=== PATIENT | female | born 1985 | race Caucasian/White ===

== ENCOUNTER 2016-10-08 18:15 | Emergency (ER) | payer MEDICAID ==
--- NOTE | 2016-10-08 19:18 | PN ---
Progress Note - Progress Note Note: Patient complaining of pain to the right labia starting today. She denies any discharge. 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
[2016-10-08] MEDS ORDERED: Acetaminophen TAB* 325 MG PO ONE (20:17)
[2016-10-08] MEDS ORDERED: Sulfamethox/Trimethoprim DS 800/160* TAB PO ONE (20:20)
[2016-10-08 21:03] LABS: Hematocrit 33 % (35-47); Hemoglobin 10.7 g/dl (12.0-16.0); Mean Corpuscular HGB Conc 33 g/dl (31-36); Mean Corpuscular Hemoglobin 31 pg (27-31); Mean Corpuscular Volume 93 fL (80-97); Mean Platelet Volume 11 um3 (7.4-10.4); Red Blood Count 3.53 10^6/ul (4.0-5.4); Red Cell Distribution Width 16 % (10.5-15); White Blood Count 5.7 10^3/ul (3.5-10.8)
[2016-10-08 21:14] LABS: BUN/Creatinine Ratio 15.1 (8-20); Calcium 8.9 mg/dL (8.6-10.3); EGFR African American 89.9 (>60); EGFR Non-African American 69.9 (>60); Potassium 4.2 mmol/L (3.5-5.0)
[2016-10-08 22:32] VITALS: BP 148/98
--- NOTE | 2016-10-08 23:22 | ED ---
Marty Oquendo Michael, scribed for Russell Benavidez MD on 10/08/16 at 1922 . Lower Extremity - HPI Summary HPI Summary: 31 y/o female was BIBA to the ED presenting with bilateral LE swelling and erythema that started 2 weeks ago and has been worsening for the past 3 days. The pt reports a hx of lymphedema in her bilateral LE, and currently her LE are swollen and have erythema. She states her bilateral LE are hot and look "waxy". She also c/o a fever with a temperature of 100.5, vaginal swelling, and lesions that burn. The pt denies vaginal discharge/bleeding, dysuria, and hematuria. The PMhx is significant for eczema and past heroine IV use. The pt was referred to the ED from [facility] where she lives. - History of Current Complaint Chief Complaint: EDExtremityLower Stated Complaint: BILATERAL LEG SWELLING Time Seen by Provider: 10/08/16 18:22 Hx Obtained From: Patient, EMS, Medical Records Mechanism Of Injury: Unknown Onset of Pain: Immediate Onset/Duration: Still Present Severity Initially: Moderate Severity Currently: Moderate Pain Intensity: 10 Pain Scale Used: 0-10 Numeric Timing: Constant Location: Is Discrete @ - bilateral LE Associated Signs And Symptoms: Positive: Swelling, Redness, Fever, Other - vaginal swelling. lesions. - Allergies/Home Medications Allergies/Adverse Reactions: Allergies Allergy/AdvReac Type Severity Reaction Status Date / Time Azithromycin [From Zithromax] Allergy Unknown Verified 10/08/16 18:25 Reaction Details Cefaclor [From Ceclor] Allergy Unknown Verified 10/08/16 18:25 Reaction Details Cyclobenzaprine Allergy Unknown Verified 10/08/16 18:24 [From Flexeril] Reaction Details Fluoxetine [From Prozac] Allergy Unknown Verified 10/08/16 18:25 Reaction Details PMH/Surg Hx/FS Hx/Imm Hx Previously Healthy: No - lymphedema. eczema. Infectious Disease History: No Infectious Disease History: Denies: Traveled Outside the [place] in Last 30 Days - Family History Known Family History: Positive: None - pt denies a significant FHx - Social History Lives: Alone - at [facility] Alcohol Use: None Hx Substance Use: Yes - heroine IV Substance Use Type: Reports: Heroin Review of Systems Positive: Fever. Negative: Chills Negative: Erythema Negative: Sore Throat Negative: Chest Pain Negative: Shortness Of Breath, Cough Negative: Abdominal Pain, Vomiting, Nausea Positive: other - vaginal swelling. Negative: dysuria, hematuria Positive: Edema - bilateral LE . Negative: Myalgia Positive: Other - lesion Neurological: Negative - dizziness All Other Systems Reviewed And Are Negative: Yes Physical Exam - Summary Physical Exam Summary: Constitutional: Well-developed, Well-nourished, Alert. (-) Distressed Skin: erythema bilateral lower calfs, excoriated lesion on scalp and right side of anterior chest. HENT: Normocephalic; Atraumatic Eyes: Conjunctiva normal Neck: Musculoskeletal ROM normal neck. (-) JVD, (-) Stridor, (-) Tracheal deviation Cardio: Rhythm regular, rate normal, Heart sounds normal; Intact distal pulses; The pedal pulses are 2+ and symmetric. Radial pulses are 2+ and symmetric. (-) Murmur Pulmonary/Chest wall: Effort normal. (-) Respiratory distress, (-) Wheezes, (-) Rales Abd: Soft, (-) Tenderness, (-) Distension, (-) Guarding, (-) Rebound Musculoskeletal: bilateral lymphedema Le. Lymph: (-) Cervical adenopathy Neuro: Alert, Oriented x3 Psych: Mood and affect Normal Triage Information Reviewed: Yes Vital Signs On Initial Exam: Initial Vitals Temp Pulse Resp BP Pulse Ox 98.4 F 108 16 127/87 96 10/08/16 18:22 10/08/16 18:22 10/08/16 18:22 10/08/16 18:22 10/08/16 18:22 Vital Signs Reviewed: Yes Diagnostics - Vital Signs Vital Signs Temp Pulse Resp BP Pulse Ox 10/08/16 18:22 98.4 F 108 16 127/87 96 - Laboratory Lab Results: Lab Results 10/08/16 10/08/16 Range/Units 18:48 18:48 WBC 5.7 (3.5-10.8) 10^3/ul RBC 3.53 L (4.0-5.4) 10^6/ul Hgb 10.7 L (12.0-16.0) g/dl Hct 33 L (35-47) % MCV 93 (80-97) fL MCH 31 (27-31) pg MCHC 33 (31-36) g/dl RDW 16 H (10.5-15) % Plt Count 156 (150-450) 10^3/ul MPV 11 H (7.4-10.4) um3 Sodium 135 (133-145) mmol/L Potassium 4.2 (3.5-5.0) mmol/L Chloride 102 (101-111) mmol/L Carbon Dioxide 30 (22-32) mmol/L Anion Gap 3 (2-11) mmol/L BUN 14 (6-24) mg/dL Creatinine 0.93 (0.51-0.95) mg/dL Est GFR ( Amer) 89.9 (>60) Est GFR (Non-Af Amer) 69.9 (>60) BUN/Creatinine Ratio 15.1 (8-20) Glucose 88 (70-100) mg/dL Calcium 8.9 (8.6-10.3) mg/dL Result Diagrams: 10/08/16 18:48 10/08/16 18:48 Lab Statement: Any lab studies that have been ordered have been reviewed, and results considered in the medical decision making process. Lower Extremity Course/Dx - Course Course Of Treatment: 31 y/o female comes to the ED presenting with worsening lymphedema of the bilateral LE and erythema of the lower calfs. She also presents lesions on her scalp and anterior right chest. - Diagnoses Provider Diagnoses: Bilateral lower leg cellulitis, Cellulitis of labia majora, Cellulitis of scalp Discharge - Discharge Plan Condition: Good Disposition: HOME Prescriptions: Sulfamethox/Trimethoprim DS* [Bactrim DS 800/160 TAB*] 1 tab PO BID #20 tab Patient Education Materials: Cellulitis (ED) Referrals: Becca Garcia, [Primary Care Provider] - 2 Days Additional Instructions: Return to the emergency department for changing or worsening symptoms The documentation as recorded by the Marty todd Michael accurately reflects the service I personally performed and the decisions made by , Russell Benavidez MD.
== END 2016-10-08 22:32 | disposition home or self-care (01) ==
LOC: ED 18:15
DX: L03.116 Cellulitis of left lower limb (principal); L03.115 Cellulitis of right lower limb; L03.811 Cellulitis of head [any part, except face]; N76.2 Acute vulvitis; R50.9 Fever, unspecified; R60.9 Edema, unspecified
CPT/HCPCS: 36415; 80048; 85027; 87480; 87491; 87510; 87591; 87661; 99283; A9270-GY

== ENCOUNTER 2016-10-24 20:18 | Emergency (ER) | payer MEDICAID ==
[2016-10-24 21:21] VITALS: BP 124/81
[2016-10-24] MEDS ORDERED: predniSONE TAB* 20 MG PO ONE (23:33)
[2016-10-24] MEDS ORDERED: Amoxicillin/Clavulanate TAB* 875 MG PO ONE (23:33)
[2016-10-24] MEDS ORDERED: Fluconazole 100 MG TAB* TAB PO ONE (23:33)
--- NOTE | 2016-10-25 23:07 | ED ---
Dalila Oquendo Anna, scribed for Russell Benavidez MD on 10/24/16 at 2333 . Skin Complaint - HPI Summary HPI Summary: Patient is a 31 y/o female coming to [facility] presenting with gradual onset of a worsening rash that began two weeks ago. She has purulent sores on her scalp, chest, and ankles. She completed a round of antibiotics last week. She was prescribed Diflucan, which did not alleviate the symptoms. She has some pain. She takes Lasix 80 mg twice a day. Denies fever. - History of Current Complaint Chief Complaint: EDRashSkinAbscess Time Seen by Provider: 10/24/16 23:20 Stated Complaint: OPEN SORES Hx Obtained From: Patient Pain Intensity: 9 Pain Scale Used: 0-10 Numeric - Allergy/Home Medications Allergies/Adverse Reactions: Allergies Allergy/AdvReac Type Severity Reaction Status Date / Time Azithromycin [From Zithromax] Allergy Unknown Verified 10/08/16 18:25 Reaction Details Cefaclor [From Ceclor] Allergy Unknown Verified 10/08/16 18:25 Reaction Details Cyclobenzaprine Allergy Unknown Verified 10/08/16 18:24 [From Flexeril] Reaction Details Fluoxetine [From Prozac] Allergy Unknown Verified 10/08/16 18:25 Reaction Details PMH/Surg Hx/FS Hx/Imm Hx Psychiatric History: Reports: Hx Substance Abuse - Immunization History Date of Tetanus Vaccine: utd Date of Influenza Vaccine: utd Infectious Disease History: No Infectious Disease History: Denies: Traveled Outside the [place] in Last 30 Days - Family History Known Family History: Negative: Cardiac Disease, Diabetes - Social History Alcohol Use: None Hx Substance Use: Yes - heroine IV Substance Use Type: Reports: Heroin Substance Use Comment - Amount & Last Used: 4 months clean Smoking Status (MU): Former Smoker Review of Systems Negative: Fever, Chills Negative: Erythema Negative: Sore Throat Negative: Chest Pain Negative: Shortness Of Breath, Cough Negative: Abdominal Pain, Vomiting, Nausea Negative: dysuria, hematuria Negative: Myalgia, Edema Positive: Rash, Other - sores All Other Systems Reviewed And Are Negative: Yes Physical Exam - Summary Physical Exam Summary: Constitutional: Well-developed, Well-nourished, Alert. (-) Distressed Skin: Round lesions with central clearing on breasts and abbasi. Surrounding erythema. HENT: Normocephalic; Atraumatic Eyes: Conjunctiva normal Neck: Musculoskeletal ROM normal neck. (-) JVD, (-) Stridor, (-) Tracheal deviation Cardio: Rhythm regular, rate normal, Heart sounds normal; Intact distal pulses; The pedal pulses are 2+ and symmetric. Radial pulses are 2+ and symmetric. (-) Murmur Pulmonary/Chest wall: Effort normal. (-) Respiratory distress, (-) Wheezes, (-) Rales Abd: Soft, (-) Tenderness, ~(-) Distension, (-) Guarding, (-) Rebound Musculoskeletal: (-) Edema Lymph: (-) Cervical adenopathy Neuro: Alert, Oriented x3 Psych: Mood and affect Normal Triage Information Reviewed: Yes Vital Signs On Initial Exam: Initial Vitals Temp Pulse Resp BP Pulse Ox 97.2 F 75 12 124/81 99 10/24/16 21:11 10/24/16 21:11 10/24/16 21:11 10/24/16 21:11 10/24/16 21:11 Vital Signs Reviewed: Yes - [place] Coma Scale Coma Scale Total: 15 Diagnostics - Vital Signs Vital Signs Temp Pulse Resp BP Pulse Ox 10/24/16 21:11 97.2 F 75 12 124/81 99 - Laboratory Lab Statement: Any lab studies that have been ordered have been reviewed, and results considered in the medical decision making process. Course/Dx - Course Assessment/Plan: Patient is a 31 y/o female coming to [facility] presenting with gradual onset of a worsening rash that began two weeks ago. She has purulent sores on her scalp, chest, and ankles. She completed a round of antibiotics last week. She was prescribed Diflucan, which did not alleviate the symptoms. She will be discharged home with Deltasone, Vusion, Lasix, and Augmentin. - Diagnoses Provider Diagnoses: Cellulitis, Tinea corporis, Acquired lymphedema Discharge - Discharge Plan Condition: Stable Disposition: HOME Prescriptions: Amoxicillin/Clavulanate TAB* [Augmentin TAB 875*] 875 mg PO BID #14 tab Furosemide TAB* [Lasix TAB*] 100 mg PO DAILY #50 tab Miconazole-Zinc Oxide-White PE [Vusion 0.25-15-81.35 %] 1 oin TOPICAL TID #1 oin predniSONE TAB* [Deltasone TAB*] 40 mg PO DAILY #8 tab Patient Education Materials: Cellulitis (ED), Tinea Corporis (ED) Referrals: Becca Garcia, [Primary Care Provider] - Additional Instructions: Follow up with your primary care provider in 48 hours. Return to the Emergency Department for any new or worsening symptoms. The documentation as recorded by the Dalila todd Anna accurately reflects the service I personally performed and the decisions made by , Russell Benavidez MD.
== END 2016-10-25 00:02 | disposition home or self-care (01) ==
LOC: ED 20:18
DX: L03.90 Cellulitis, unspecified (principal); B35.4 Tinea corporis; I89.0 Lymphedema, not elsewhere classified; Z87.891 Personal history of nicotine dependence
CPT/HCPCS: 99282; A9270-GY; J7512

== ENCOUNTER 2016-10-29 17:45 | Inpatient (IN) | payer MEDICAID ==
[2016-10-29] MEDS ORDERED: NS 0.9% 1000 ML* 1,000 ML IV ONE (17:54)
[2016-10-29 19:13] LABS: Hematocrit 39 % (35-47); Hemoglobin 12.6 g/dl (12.0-16.0); Mean Corpuscular HGB Conc 33 g/dl (31-36); Mean Corpuscular Hemoglobin 30 pg (27-31); Mean Corpuscular Volume 91 fL (80-97); Mean Platelet Volume 11 um3 (7.4-10.4); Red Blood Count 4.24 10^6/ul (4.0-5.4); Red Cell Distribution Width 15 % (10.5-15); White Blood Count 13.9 10^3/ul (3.5-10.8)
[2016-10-29 19:18] LABS: Add Diff/Slide Review? Slide Review Added; Comments Flag Yes
[2016-10-29 19:30] LABS: Albumin 3.8 g/dL (3.2-5.2); BUN/Creatinine Ratio 24.4 (8-20); C Reactive Protein 24.75 mg/L (< 5.00); Calcium 10.1 mg/dL (8.6-10.3); EGFR African American 46.7 (>60); EGFR Non-African American 36.3 (>60); Globulin 3.7 g/dL (2-4); Total Bilirubin 0.4 mg/dL (0.2-1.0); Total Protein 7.5 g/dL (6.4-8.9)
--- NOTE | 2016-10-29 20:35 | ED ---
Park Oquendo Erika, scribed for Arabella Trujillo MD on 10/29/16 at 1840 . Skin Complaint - HPI Summary HPI Summary: Patient is a 31-year-old female presenting to the ED with a CC of rash. She reports that she has had a rash on her chest for the past few weeks. She describes it was excoriated with green drainage, but denies pruritus. She was taking augmentin for the rash but did not improve. Now, rash has spread to pt's face, back, and buttocks. Today, she developed a fever, chills, and vomiting as well. Pt also reports that her bilateral ankle swelling and erythema, which she has had all her life, has worsened the past few days. She also reports there has been increased weeping of the skin. Pt is currently being treated at [facility] for heroin addiction. She is taking suboxone, as well as metalozone and lasix. She does not have a PCP. - History of Current Complaint Stated Complaint: NAUSEA,VOMITING Hx Obtained From: Patient Onset/Duration: Started Weeks Ago, Atraumatic, Worse Since - past few days Timing: Constant Current Severity: Moderate Skin Location: Diffuse Aggravating Symptom(s): Nothing Alleviating Symptom(s): Nothing Associated Signs & Symptoms: Nausea, Vomiting, Fever, Chills, Drainage - Allergy/Home Medications Allergies/Adverse Reactions: Allergies Allergy/AdvReac Type Severity Reaction Status Date / Time Azithromycin [From Zithromax] Allergy Unknown Verified 10/08/16 18:25 Reaction Details Cefaclor [From Ceclor] Allergy Unknown Verified 10/08/16 18:25 Reaction Details Cyclobenzaprine Allergy Unknown Verified 10/08/16 18:24 [From Flexeril] Reaction Details Fluoxetine [From Prozac] Allergy Unknown Verified 10/08/16 18:25 Reaction Details PMH/Surg Hx/FS Hx/Imm Hx Respiratory History: Reports: Hx Asthma Neurological History: Reports: Hx Seizures Psychiatric History: Reports: Hx Substance Abuse - Immunization History Date of Tetanus Vaccine: utd Date of Influenza Vaccine: utd - Family History Known Family History: Negative: Cardiac Disease, Diabetes - Social History Lives: Nursing Home - [facility] Alcohol Use: None Hx Substance Use: Yes - heroine IV Substance Use Type: Reports: Heroin Substance Use Comment - Amount & Last Used: 4 months clean Smoking Status (MU): Former Smoker Review of Systems Positive: Fever, Chills Positive: Vomiting, Nausea Musculoskeletal: Other - bilateral ankle swelling and erythema Positive: Rash All Other Systems Reviewed And Are Negative: Yes Physical Exam Triage Information Reviewed: Yes Vital Signs On Initial Exam: Temp Pulse Resp BP Pulse Ox 98.4 F 100 20 137/67 95 10/29/16 18:21 10/29/16 18:21 10/29/16 18:21 10/29/16 18:21 10/29/16 18:21 Vital Signs Reviewed: Yes Appearance: Positive: Well-Appearing, No Pain Distress Skin: Positive: Warm, Skin Color Reflects Adequate Perfusion, Dry, Other - Diffuse rash with some areas of excoriation. Erythema to the legs with excoriated areas and edema bilaterally. Eyes: Positive: EOMI, MAICO ENT: Positive: Pharynx normal, TMs normal Neck: Positive: Supple, Nontender Respiratory/Lung Sounds: Positive: Clear to Auscultation, Breath Sounds Present. Negative: Rales, Rhonchi, Wheezes Cardiovascular: Positive: Tachycardia - at 100 bpm on triage, Other - No gallops. Negative: Murmur, Rub Abdomen Description: Positive: Nontender, Soft, Other: - No rebound. Negative: Distended, Guarding Bowel Sounds: Positive: Present Musculoskeletal: Positive: Edema Left, Edema Right, Other - GENO Neurological: Positive: Sensory/Motor Intact, Alert, Oriented to Person Place, Time, Other - CN II-XII intact Psychiatric: Positive: Affect/Mood Appropriate Diagnostics - Vital Signs Vital Signs Temp Pulse Resp BP Pulse Ox 10/29/16 18:21 98.4 F 100 20 137/67 95 - Laboratory Lab Results: Lab Results 10/29/16 10/29/16 10/29/16 Range/Units 18:55 18:55 18:55 WBC 13.9 H (3.5-10.8) 10^3/ul RBC 4.24 (4.0-5.4) 10^6/ul Hgb 12.6 (12.0-16.0) g/dl Hct 39 (35-47) % MCV 91 (80-97) fL MCH 30 (27-31) pg MCHC 33 (31-36) g/dl RDW 15 (10.5-15) % Plt Count 185 (150-450) 10^3/ul MPV 11 H (7.4-10.4) um3 Neut % (Auto) 70.5 (38-83) % Lymph % (Auto) 12.9 L (25-47) % [place] % (Auto) 16.0 H (1-9) % Eos % (Auto) 0.4 (0-6) % Baso % (Auto) 0.2 (0-2) % Absolute Neuts (auto) 9.8 H (1.5-7.7) 10^3/ul Absolute Lymphs (auto) 1.8 (1.0-4.8) 10^3/ul Absolute Monos (auto) 2.2 H (0-0.8) 10^3/ul Absolute Eos (auto) 0.1 (0-0.6) 10^3/ul Absolute Basos (auto) 0 (0-0.2) 10^3/ul Absolute Nucleated RBC 0 10^3/ul Nucleated RBC % 0 Sodium 130 L (133-145) mmol/L Potassium 3.0 L (3.5-5.0) mmol/L Chloride 78 L (101-111) mmol/L Carbon Dioxide 44 H* (22-32) mmol/L Anion Gap 8 (2-11) mmol/L BUN 40 H (6-24) mg/dL Creatinine 1.64 H (0.51-0.95) mg/dL Est GFR ( Amer) 46.7 (>60) Est GFR (Non-Af Amer) 36.3 (>60) BUN/Creatinine Ratio 24.4 H (8-20) Glucose 102 H (70-100) mg/dL Lactic Acid 1.4 (0.5-2.0) mmol/L Calcium 10.1 (8.6-10.3) mg/dL Total Bilirubin 0.40 (0.2-1.0) mg/dL AST 18 (13-39) U/L ALT 12 (7-52) U/L Alkaline Phosphatase 56 (34-104) U/L C-Reactive Protein 24.75 H (< 5.00) mg/L Total Protein 7.5 (6.4-8.9) g/dL Albumin 3.8 (3.2-5.2) g/dL Globulin 3.7 (2-4) g/dL Albumin/Globulin Ratio 1.0 (1-3) Result Diagrams: 10/29/16 18:55 10/29/16 18:55 Lab Statement: Any lab studies that have been ordered have been reviewed, and results considered in the medical decision making process. Re-Evaluation - Re-Evaluation First Eval Re-Evaluation Time: 19:16 Change: Unchanged Comment: Patient's skin examined more closely at this time. She has multiple excoriated areas over her chest and breasts. She has 1 excoriated area on the left buttock cheek. She also has erythema to both calves, which are edematous. Second Eval Re-Evaluation Time: 20:01 Comment: Discussed admission Course/Dx - Course Course Of Treatment: Prior records reviewed: Patient was seen on 10/08/2016 with these lesions, and was started on Bactrim. She also had a vulvar cellulitis. She was seen again on 10/24. Elevated BUN and creatinine noted since yesterday. Pt to be admitted for cellulitis and elevated bun/screw down - Diagnoses Provider Diagnoses: Cellulitis, Excoriation (skin-picking) disorder, Renal insufficiency - Physician Notifications Discussed Care Of Patient With: Dr. Breen (hospitalist) at 20:01 - agrees to admit Discharge - Discharge Plan Condition: Stable Disposition: ADMITTED TO [facility] Referrals: [facility], [Primary Care Provider] - The documentation as recorded by the Park todd Erika accurately reflects the service I personally performed and the decisions made by me, Arabella Trujillo MD.
[2016-10-29] MEDS ORDERED: Albuterol 2.5 MG/3 ML NEB.SOL* (0.083%) INH PRN (21:32)
[2016-10-29] MEDS ORDERED: Vancomycin(*) 1,500 MG in NS 0.9% 250 ML* 250 ML IVPB ONE (21:33)
[2016-10-29] MEDS ORDERED: Potassium Chlor TAB* 20 MEQ TAB.ER PO ONE (21:35)
[2016-10-29] MEDS ORDERED: Melatonin [Melatonin] 5 MG PO PRN (21:35)
[2016-10-29] MEDS ORDERED: Vancomycin per Pharmacy* NOTE FOLLOW UP PRN (22:02)
[2016-10-29] MEDS ORDERED: NS 0.9% 250 ML* 250 ML ONE (22:05)
[2016-10-29] MEDS: Divalproex DR TAB(*) 500 MG PO SCH (22:13)
[2016-10-29] MEDS: Ondansetron INJ* 2 MG/ML VIAL IV PRN (22:13)
[2016-10-29] MEDS: diPHENhydraMINE PO* 25 MG PO PRN (22:14)
[2016-10-29] MEDS: hydrOXYzine HCL TAB* 25 MG PO SCH (22:14)
[2016-10-29] MEDS: cloNIDine TAB* 0.1 MG PO SCH (22:14)
[2016-10-29 23:02] LABS: Lithium 1.08 mmol/L (0.6-1.2)
[2016-10-29] MEDS ORDERED: CMCS: Melatonin (NF) 3 MG TAB PO PRN (23:43)
[2016-10-30] MEDS: Heparin VIAL(*) 5000 UNITS/ML VIAL (FIVE THOUSAND) SUBCUT SCH ×5 (00:45→21:24)
[2016-10-30] MEDS: NS 0.9% 1000 ML* 1,000 ML IV SCH ×2 (00:49→08:44)
[2016-10-30] MEDS: KCL 10 MEQ/50 ML IVPREMIX* 10 MEQ/50 ML BAG IV SCH ×3 (00:49→03:20)
--- NOTE | 2016-10-30 01:50 | HP ---
HISTORY AND PHYSICAL: DATE OF ADMISSION: 10/29/16 PRIMARY CARE PROVIDER: Shoshana Mcdonald MD ATTENDING PHYSICIAN WHILE IN THE HOSPITAL: Kanu Breen MD * (report dictated by Agus Simpson NP) CONSULTING PHYSICIAN: Infectious disease specialist, Dr. Martin. CHIEF COMPLAINT: 1. Nausea. 2. Fever. 3. Skin rash. HISTORY OF PRESENT ILLNESS: Mrs. 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 She resides at the inpatient [facility] program and is receiving inpatient treatment there. She comes in today stating about 2 weeks ago, she had swelling of her lower extremities. She has chronic lymphedema, but it was getting worse and she was started on metolazone and also put on increased Lasix. She said that she started noticing having skin lesions; first one was in her legs and then they spread to her chest and on to her buttocks. She describes another circular-type lesion that has been having some crusting and pus coming out of them at times and they have been painful. She says that she had a fever today. She has been to the ER twice now for this and the patient was placed on Augmentin. In addition to this, I also placed on Lamisil. The patient comes back today because she felt nauseated. She felt febrile and she was evaluated in the ER and we were asked to evaluate her for admission. She denied having any abdominal discomfort. No chest pain. No shortness of breath. She denied having any recent change in medications with the exception of the Lamisil and also being put on metolazone. It was also found that she was in acute renal failure and she appeared to be alkalotic and again it was felt that she would require admission. PAST MEDICAL HISTORY: Significant for: 1. IV drug use. 2. Lymphedema. 3. Asthma. 4. Bipolar disorder. 5. Anxiety. 6. Depression. 7. PTSD. PAST SURGICAL HISTORY: 1. She has had gastric bypass. 2. Laparoscopic cholecystectomy. 3. Appendectomy. 4. Tonsillectomy. HOME MEDICATIONS: According to the Check I'm Here list include: 1. Tylenol 325 mg p.o. every 6 hours as needed. 2. Lamisil 250 mg daily. 3. Benadryl 25 mg p.o. every 6 hours as needed. 4. Multivitamin 1 tablet daily. 5. Melatonin 5 mg p.o. at bedtime as needed. 6. Compazine 25 mg p.o. every 8 hours as needed. 7. Zanaflex 4 mg p.o. every 6 hours as needed. 8. Tums 500 mg p.o. every 6 hours as needed. 9. Metolazone 5 mg daily. 10. Zestril 25 mg p.o. t.i.d. 11. Clonidine 0.3 mg at bedtime. 12. Depakote 2000 mg at bedtime. 13. Suboxone 1 tablet sublingually daily. 14. Miconazole/zinc topical application t.i.d. 15. Lasix 100 mg p.o. daily. ALLERGIES: To medications include: AZITHROMYCIN, CEFACLOR, FLEXERIL, and PROZAC. FAMILY HISTORY: Mother had cancer. Father had a history of diabetes. SOCIAL HISTORY: She is a former smoker. She does not drink alcohol. She is a former heroin addict. She is 7 months sober. Surrogate decision maker is her sister, Lula. REVIEW OF SYSTEMS: There is no documented fever here, but she did have one at [facility]. She does not remember how high it was. She denied having any significant weight change. There was no double vision. There is no ear discharge. She denies having any rhinorrheas. No sore throat. No thyroid enlargement. She denies having any chest pain. There is no orthopnea. No nocturnal dyspnea. No abdominal pain. There was nausea and vomiting today. There is no dysuria. No frequency. No loss of consciousness. There are skin ulcerations per my HPI. Review of 14 systems completed, all others negative. PHYSICAL EXAMINATION GENERAL: At this time Mrs. Colón is a 31-year-old female patient. She is morbidly obese. She is sitting in the ER stretcher. She does not appear to be in any acute distress. VITAL SIGNS: Reveals blood pressure of 137/67, pulse 100, respirations 20, O2 sat 95%, and temperature 98.4. HEENT: Head is atraumatic and normocephalic. Eyes: EOMs are intact. Sclerae anicteric. NECK: Supple. Throat; oral mucosa appears to be dry. No oropharyngeal erythema. There were no oral lesions. LUNGS: She had wheezing bilaterally, equal diaphragmatic expansion. HEART: Sounds S1 and S2. Regular rate and rhythm. No murmurs, rubs, or gallops. ABDOMEN: Soft, flat, and nontender. Bowel sounds were present. EXTREMITIES: She had lymphedema bilaterally. She was able to move all 4 extremities with 5/5 strength. NEUROLOGIC: She is awake, alert, and oriented x3. Tongue midline. Associate Professor Of English are equal. No gross focal deficits. SKIN: Intact with the exception that she has got multiple ulcerative lesions to her chest on the left and the right. They vary in size. There is erythema. There does appear to be an ulcerative base to them and on palpitation, there does not appear to have any fluctuance or induration that I could feel. Otherwise, skin intact. DIAGNOSTIC STUDIES/LAB DATA: Labs today reveal WBC of 13.9, RBC of 4.24, hemoglobin 12.6, hematocrit 39, and platelet count 185. Sodium 130, potassium 3.0, chloride of 78, bicarb 44, BUN 40, creatinine 1.64, glucose 102, lactic 1.4 , and calcium 10.1. Total bili 0.43, AST 18, ALT 12, and alk phos 56. Her CRP was 24. Albumin 3.8. Toxicology is pending. Old medical records were reviewed. ASSESSMENT AND PLAN: Mrs. Colón is a 31-year-old female patient coming into the ER today who complains of multiple wounds to her chest and buttocks and on evaluation today, it was found that she was in acute renal failure. Hospital service was asked to evaluate her for admission. She will be admitted under inpatient status for: 1. Skin ulcerations: Again etiology is unclear. I do not believe this is cellulitis because it is in multiple areas, but she did have some drainage that could be secondarily infected. I am going to put her on vanco. Wound culture was sent. I will get blood cultures. She does have a slight leukocytosis and she did have some fever reportedly. I will put her on vanco. I have put in an ID consult as well and I will continue to follow. We may need to consider getting a punch biopsy. I do not believe this is a fungal infection, but again we will continue to follow this closely. 2. Acute renal failure: This is probably related to over diuresis. Her bicarb is 44 and she appears to be dry. I am going to go ahead and give her IV fluids and we will continue to follow. I am going to hold the diuretics for now. 3. Hypokalemia: We will replace this. 4. Hyponatremia: Again it is mild. But I suspect this is from over diuresis from the Lasix. 5. History of IV drug use: The patient will follow up with [facility]. 6. Lymphedema: Continue current medical regimen. 7. Asthma: I will continue her meds as prescribed. I have also ordered p.r.n. albuterol. 8. Bipolar disorder, anxiety, and depression: Continue meds as prescribed. 9. Posttraumatic stress disorder: Continue supportive care. 10. DVT prophylaxis: She will be placed on heparin subcu. 11. Code status: Full code. 12. Fluids, electrolytes, and nutrition: She can have a regular diet. TIME SPENT: Time spent on the admission was 60 minutes; greater than half the time was spent [id number] with the patient obtaining my history and physical, the other half time is spent going over the plan of care with the patient and implementing plan of care. I discussed the plan of care with my attending, Dr. Breen. He is in agreement. AGUS SIMPSON NP CC: Dr. Mcdonald; Dr. Martin * [id number]/[facility] #: [id number] MTDD
[2016-10-30 05:01] LABS: Urine Bilirubin Negative (Negative); Urine Glucose Negative (Negative); Urine Nitrite Negative (Negative)
[2016-10-30 06:26] LABS: Hematocrit 34 % (35-47); Hemoglobin 11.2 g/dl (12.0-16.0); Mean Corpuscular HGB Conc 33 g/dl (31-36); Mean Corpuscular Hemoglobin 31 pg (27-31); Mean Corpuscular Volume 92 fL (80-97); Mean Platelet Volume 12 um3 (7.4-10.4); Red Blood Count 3.67 10^6/ul (4.0-5.4); Red Cell Distribution Width 15 % (10.5-15); White Blood Count 11.7 10^3/ul (3.5-10.8)
[2016-10-30 06:43] LABS: Calcium 8.8 mg/dL (8.6-10.3); EGFR African American 53.4 (>60); EGFR Non-African American 41.5 (>60); Potassium 2.9 mmol/L (3.5-5.0)
[2016-10-30] MEDS: hydrOXYzine HCL TAB* 25 MG PO SCH ×3 (08:10→20:19)
[2016-10-30] MEDS: Buprenorphine/Naloxone 8-2 MG SL TAB* 1 TAB SL SCH (08:10)
[2016-10-30] MEDS: tiZANidine TAB* 2 MG PO PRN ×2 (08:43→16:57)
[2016-10-30 09:16] LABS: Magnesium 2.2 mg/dL (1.9-2.7)
[2016-10-30] MEDS ORDERED: Vancomycin(*) 1,500 MG in NS 0.9% 250 ML* 250 ML IVPB SCH (11:00)
[2016-10-30] MEDS: Ondansetron INJ* 2 MG/ML VIAL IV PRN ×2 (12:02→20:20)
[2016-10-30 12:58] LABS: C Reactive Protein 51.82 mg/L (< 5.00)
[2016-10-30] MEDS: Potassium Chlor TAB* 20 MEQ TAB.ER PO SCH ×2 (14:11→20:20)
[2016-10-30] MEDS: diPHENhydraMINE PO* 25 MG PO PRN (14:16)
--- NOTE | 2016-10-30 15:49 | PN ---
Subjective Date of Service: 10/30/16 Interval History: This is a 31 yo female with a h/o IV drug abuse, chronic lymphedema, asthma, bipolar disorder, anxiety, depression and PTSD who presented with complaints of a rash across her chest and mild nausea. Patient was found to have MICHELLE and ulcerative lesions across her chest. She denies oral or vaginal ulcerations. No other acute illnesses. Patient was evaluated in the ER for the same rash a few days prior and was discharged with Augmentin which was discontinued and patient was instead treated with topical antifungals. Patient has also been diuressed for her chronic LE edema and was admitted for MICHELLE. She was started on IV fluids at admission. Patient reports some generalized malaise and mild nausea and otherwise denies other acute complaints. Objective Active Medications: Acetaminophen (Tylenol Tab*) 650 mg PO Q4H PRN PRN Reason: FEVER/PAIN Albuterol (Ventolin 2.5 Mg/3 Ml Neb.Mabel*) 2.5 mg INH Q2H PRN PRN Reason: SOB/WHEEZING Buprenorphine/Naloxone (Suboxone 8-2 Mg Sl Tab*) 1 tab.sl SL DAILY [facility] Last Admin: 10/30/16 08:10 Dose: 1 tab.sl Buprenorphine/Naloxone (Suboxone 8-2 Mg Sl Tab*) 0.5 tab.sl PO DAILY@1630 [facility] Clonidine HCl (Catapres Tab*) 0.3 mg PO BEDTIME [facility] Last Admin: 10/29/16 22:14 Dose: 0.3 mg Diphenhydramine HCl (Benadryl Po*) 25 mg PO Q6H PRN PRN Reason: INSOMNIA Last Admin: 10/30/16 14:16 Dose: 25 mg Divalproex Sodium (Depakote Dr Tab(*)) 2,000 mg PO BEDTIME [facility] Last Admin: 10/29/16 22:13 Dose: 2,000 mg Heparin Sodium (Porcine) (Heparin Vial(*)) 5,000 units SUBCUT Q8HR [facility] Last Admin: 10/30/16 12:17 Dose: Not Given Hydroxyzine HCl (Atarax Tab*) 25 mg PO TID [facility] Last Admin: 10/30/16 14:11 Dose: 25 mg Sodium Chloride (Ns 0.9% 1000 Ml*) 1,000 mls @ 125 mls/hr IV PER RATE [facility] Stop: 10/31/16 09:00 Last Admin: 10/30/16 08:44 Dose: 125 mls/hr Vancomycin HCl 1,500 mg/ (Sodium Chloride) 250 mls @ 166.667 mls/hr IVPB Q12H [facility] Last Admin: 10/30/16 11:37 Dose: 166.667 mls/hr Melatonin (Melatonin (Nf)) 3 mg PO BEDTIME PRN PRN Reason: INSOMNIA Ondansetron HCl (Zofran Inj*) 4 mg IV Q6H PRN PRN Reason: NAUSEA Last Admin: 10/30/16 12:02 Dose: 4 mg Pharmacy Consult (Vancomycin Per Pharmacy*) 1 note FOLLOW UP . PRN PRN Reason: PER PROTOCOL Pharmacy Profile Note (Vancomycin Trough Check) 1 note FOLLOW UP 1030 [facility] Stop: 10/31/16 10:31 Potassium Chloride (Klor Con Er Tab*) 40 meq PO TID [facility] Stop: 10/31/16 09:01 Last Admin: 10/30/16 14:11 Dose: 40 meq Promethazine HCl (Phenergan Tab*) 25 mg PO Q8H PRN PRN Reason: NAUSEA Tizanidine HCl (Zanaflex Tab*) 4 mg PO Q6H PRN PRN Reason: PAIN Last Admin: 10/30/16 08:43 Dose: 4 mg Vital Signs: Temp Pulse Resp BP Pulse Ox 97.8 F 77 18 136/69 98 10/30/16 12:18 10/30/16 12:18 10/30/16 14:16 10/30/16 12:18 10/30/16 12:18 Oxygen Devices in Use Now: None Appearance: Well appearing, in NAD Ears/Nose/Mouth/Throat: Mucous Membranes Moist Neck: NL Appearance and Movements; NL JVP Respiratory: Symmetrical Chest Expansion and Respiratory Effort, Clear to Auscultation Cardiovascular: NL Sounds; No Murmurs; No JVD, RRR Abdominal: NL Sounds; No Tenderness; No Distention Extremities: - - LE edema, non-pitting ~3+ Skin: - - ulcerated lesions with scant purulent drainage and mild surrounding erythema over her chest, each about 1.5 cm in diameter Neurological: Alert and Oriented x 3 Result Diagrams: 10/30/16 05:35 10/30/16 05:35 Additional Lab and Data: . Assess/Plan/Problems-Billing Assessment: This is a 31 yo female with history of IV drug abuse, bipolar disorder, anxiety , depression, PTSD, asthma and chronic lymphedema who presented with ulcerative lesions across her chest and LE edema. - Patient Problems (1) Skin ulceration Comment: Appears secondarily infected, but not septic Will stop Vanco and start oral doxy Based on location and absence of mucosal involvement along with her history of IV drug abuse, ulcerations are likely due to intentional or unintentional picking Recommend keeping the open areas covered with a dry dressing (2) MICHELLE (acute kidney injury) Comment: With metabolic alkalosis secondary to over diuresis Stopped all diuretics Giving IV fluids Noted improvement, adequate urine output (3) Chronic acquired lymphedema Comment: Diuretics are not an appropriate therapy Recommend weight loss and lower extremity compression (4) Morbid obesity Comment: BMI 45 (5) History of intravenous drug use in remission Comment: Current resident at [facility] Reportedly sober x 7 months (6) Bipolar disorder (7) Anxiety (8) Depression (9) PTSD (post-traumatic stress disorder) Status and Disposition: Anticipate discharge tomorrow back to [facility] with oral antibiotics.
[2016-10-30] MEDS: Buprenorphine/Naloxone 8-2 MG SL TAB* 1 TAB PO SCH (16:01)
[2016-10-30 16:09] LABS: Erythrocyte Sed Rate 48 mm/Hr (0-14)
--- NOTE | 2016-10-30 16:13 | CONS ---
CONSULTATION REPORT: DATE OF CONSULT: 10/30/16 REQUESTING PROVIDER: Agus Simpson NP CONSULTING SERVICE: Infectious Disease. REASON FOR CONSULT: Skin lesions, elevated C-reactive protein. IMPRESSION: 1. Multiple bilateral breast eschars with surrounding mild erythema. Previously had some drainage from one of them. There are similar lesions in the left ankle and left sikhism and nose. There is some associated alopecia around the sikhism related lesions. They appeared to be excoriation based lesions. They did not start off of nodules or pustules she did not think. Although does appear to be secondary infection, which is improving since antibiotics. 2. Nausea and fever related to secondary wound infection improving. RECOMMENDATIONS: Agree with vancomycin another 24 hours. Add procalcitonin. Assuming she is improving. She could use doxycycline 100 mg by mouth twice daily for another 7 days. HISTORY OF PRESENT ILLNESS: This is a 31-year-old woman with injection drug use and brief admission at [facility], she lives there. She has had about 10 to 14 days of bilateral breast lesions that are neither painful nor itchy. She said she is not scratching at them. She has had similar on the left ankle, left side of the nose, and left sikhism. Has never had anything like them before. Has been more stressed and anxious recently at [facility]. She had Bactrim as an outpatient. She has had a diuresis for her acute on chronic lymphedema with some improvement in her leg swelling. She had development of nausea, fever, and anorexia. She came to the ER, her white count was 13,000. She was afebrile. She was started on vancomycin after blood cultures were sent. The wound culture from her lesions were sent. The Gram stain showed 3+ neutrophils, 2+ epithelial cells. This morning, her malaise and nausea and fever feel better. She was eating. She denies any pain and no new skin lesions. PAST MEDICAL HISTORY: 1. Injection drug use and brief admission. 2. Obesity and history of gastric bypass. 3. Chronic lymphedema in the lower extremities bilaterally. 4. Asthma. 5. Bipolar disorder. 6. Anxiety. 7. Depression. 8. Posttraumatic stress disorder. 9. Status post gastric bypass. 10. Status post laparoscopic cholecystectomy. 11. Status post appendectomy. 12. Status post tonsillectomy. MEDICATIONS: 1. Tylenol. 2. Suboxone. 3. Depakote. 4. Heparin subcutaneous injection. 5. Melatonin. 6. Potassium. 7. Promethazine p.r.n. 8. Vancomycin 1 g every 12 hours. 9. Clonidine. 10. Hydroxyzine. 11. Tizanidine. ALLERGIES: AZITHROMYCIN, CEFACLOR, FLEXERIL, and PROZAC. FAMILY HISTORY: For diabetes, but no recurrent infection. SOCIAL HISTORY: Lives at [facility], otherwise is from [place]. No sick contacts. Past heroin injection. REVIEW OF SYSTEMS: All negatives except as noted above. PHYSICAL EXAM: Vital Signs: Temperature is 36.7, heart rate is 80, respiratory rate 18, blood pressure 100/40, O2 sat 94% on room air. In general , she is in no distress. Neurologically, she is awake and oriented x3. Follows all commands. HEENT: There is no conjunctival hemorrhage. Oropharynx without lesions. Neck is supple without nuchal rigidity. Lymph Nodes: There is no cervical, supraclavicular, inguinal, axillary, or epitrochlear lymphadenopathy. Heart has regular rate and rhythm without murmurs, rubs, or gallops. Lungs are clear to auscultation bilaterally. Abdomen is soft, nontender, and nondistended. Skin: There is no rash or splinter hemorrhage. Left sikhism and left nose, there are superficial small eschars and left sikhism there are associated alopecia. On the bilateral breasts, there are three to four 1 cm areas of eschar and excoriation without surrounding erythema. On the left ankle, there is a trace erythema with superficial eschar. There is no fluctuance or tenderness. Musculoskeletal: There is no joint synovitis or spine tenderness to palpation. LABORATORY DATA: White blood cell count 11, hemoglobin 11, platelets 172. Creatinine 1.4. Please see impressions and recommendations as outlined above. Thanks for asking me to see Ms. Colón in consultation. [id number]/[facility] #: [id number] YOLANDA
[2016-10-30] MEDS: Promethazine TAB* 25 MG PO PRN (16:23)
[2016-10-30] MEDS ORDERED: Senna TAB PO PRN (18:24)
[2016-10-30] MEDS ORDERED: Polyethylene Glycol 3350* 17 GM PACKET PO ONE (19:00)
[2016-10-30] MEDS: Acetaminophen TAB* 325 MG PO PRN (19:38)
[2016-10-30] MEDS: cloNIDine TAB* 0.1 MG PO SCH (20:14)
[2016-10-30] MEDS: Docusate CAP* 100 MG PO SCH (20:19)
[2016-10-30] MEDS: DOXYcycline CAP(*) 100 MG PO SCH (20:19)
[2016-10-30] MEDS: Divalproex DR TAB(*) 500 MG PO SCH (20:19)
[2016-10-31] MEDS: Heparin VIAL(*) 5000 UNITS/ML VIAL (FIVE THOUSAND) SUBCUT SCH ×3 (05:37→20:44)
[2016-10-31] MEDS: Docusate CAP* 100 MG PO SCH ×2 (09:26→20:44)
[2016-10-31] MEDS: DOXYcycline CAP(*) 100 MG PO SCH ×2 (09:26→20:44)
[2016-10-31] MEDS: Promethazine TAB* 25 MG PO PRN ×2 (09:27→16:57)
[2016-10-31] MEDS: hydrOXYzine HCL TAB* 25 MG PO SCH ×3 (09:27→20:44)
[2016-10-31] MEDS: Potassium Chlor TAB* 20 MEQ TAB.ER PO SCH (09:27)
[2016-10-31] MEDS: Buprenorphine/Naloxone 8-2 MG SL TAB* 1 TAB SL SCH (09:27)
[2016-10-31] MEDS ORDERED: Vancomycin Trough Check NOTE FOLLOW UP ONE (10:30)
[2016-10-31] MEDS: tiZANidine TAB* 2 MG PO PRN ×2 (11:31→17:51)
[2016-10-31] MEDS ORDERED: Magnesium Hydroxide LIQ* 30 ML UDC PO ONE (16:02)
[2016-10-31] MEDS: Buprenorphine/Naloxone 8-2 MG SL TAB* 1 TAB PO SCH (16:57)
[2016-10-31] MEDS: diPHENhydraMINE PO* 25 MG PO PRN (17:51)
--- NOTE | 2016-10-31 17:59 | PN ---
Subjective Date of Service: 10/31/16 Interval History: patient reports no BM in 7 days. No abdominal pain. no fever, chills. states she is nervous to go back to [facility] due to "the girls pick on me for my wounds". Objective Active Medications: Acetaminophen (Tylenol Tab*) 650 mg PO Q4H PRN PRN Reason: FEVER/PAIN Last Admin: 10/30/16 19:38 Dose: 650 mg Albuterol (Ventolin 2.5 Mg/3 Ml Neb.Mabel*) 2.5 mg INH Q2H PRN PRN Reason: SOB/WHEEZING Buprenorphine/Naloxone (Suboxone 8-2 Mg Sl Tab*) 1 tab.sl SL DAILY [facility] Last Admin: 10/31/16 09:27 Dose: 1 tab.sl Buprenorphine/Naloxone (Suboxone 8-2 Mg Sl Tab*) 0.5 tab.sl PO DAILY@1630 [facility] Last Admin: 10/31/16 16:57 Dose: 0.5 tab.sl Clonidine HCl (Catapres Tab*) 0.3 mg PO BEDTIME [facility] Last Admin: 10/30/16 20:14 Dose: 0.3 mg Diphenhydramine HCl (Benadryl Po*) 25 mg PO Q6H PRN PRN Reason: INSOMNIA Last Admin: 10/31/16 17:51 Dose: 25 mg Divalproex Sodium (Depakote Dr Tab(*)) 2,000 mg PO BEDTIME [facility] Last Admin: 10/30/16 20:19 Dose: 2,000 mg Docusate Sodium (Colace Cap*) 100 mg PO BID [facility] Last Admin: 10/31/16 09:26 Dose: 100 mg Doxycycline Hyclate (Vibramycin Cap(*)) 100 mg PO BID [facility] Last Admin: 10/31/16 09:26 Dose: 100 mg Heparin Sodium (Porcine) (Heparin Vial(*)) 5,000 units SUBCUT Q8HR [facility] Last Admin: 10/31/16 14:44 Dose: Not Given Hydroxyzine HCl (Atarax Tab*) 25 mg PO TID [facility] Last Admin: 10/31/16 14:43 Dose: 25 mg Melatonin (Melatonin (Nf)) 3 mg PO BEDTIME PRN PRN Reason: INSOMNIA Ondansetron HCl (Zofran Inj*) 4 mg IV Q6H PRN PRN Reason: NAUSEA Last Admin: 10/30/16 20:20 Dose: 4 mg Polyethylene Glycol/Electrolytes (Miralax*) 17 gm PO 0800,2100 [facility] Promethazine HCl (Phenergan Tab*) 25 mg PO Q8H PRN PRN Reason: NAUSEA Last Admin: 10/31/16 16:57 Dose: 25 mg Senna (Senokot Tab*) 1 tab PO BEDTIME PRN PRN Reason: CONSTIPATION Tizanidine HCl (Zanaflex Tab*) 4 mg PO Q6H PRN PRN Reason: PAIN Last Admin: 10/31/16 17:51 Dose: 4 mg Vital Signs 10/30/16 10/30/16 10/31/16 18:01 20:00 00:45 Temperature 97.5 F Pulse Rate 87 81 Respiratory 16 16 16 Rate Blood Pressure 125/57 (mmHg) O2 Sat by Pulse 98 100 Oximetry 10/31/16 10/31/16 10/31/16 08:00 09:18 09:27 Temperature 97.7 F Pulse Rate 81 Respiratory 14 16 14 Rate Blood Pressure 136/58 (mmHg) O2 Sat by Pulse 100 Oximetry 10/31/16 10/31/16 10/31/16 11:27 15:47 16:57 Temperature Pulse Rate 79 Respiratory 14 16 14 Rate Blood Pressure (mmHg) O2 Sat by Pulse 98 Oximetry 10/31/16 17:51 Temperature Pulse Rate Respiratory 18 Rate Blood Pressure (mmHg) O2 Sat by Pulse Oximetry Oxygen Devices in Use Now: None Appearance: obese female laying in bed in NAD. A+O x3. Eyes: No Scleral Icterus, PERRLA Ears/Nose/Mouth/Throat: NL Teeth, Lips, Gums, Mucous Membranes Moist Neck: NL Appearance and Movements; NL JVP, Trachea Midline Respiratory: Symmetrical Chest Expansion and Respiratory Effort, Clear to Auscultation Cardiovascular: NL Sounds; No Murmurs; No JVD, RRR Abdominal: NL Sounds; No Tenderness; No Distention Lymphatic: No Cervical Adenopathy Extremities: No Edema, No Clubbing, Cyanosis Skin: No Rash or Ulcers, No Nodules or Sclerosis Neurological: Alert and Oriented x 3, NL Sensation, NL Muscle Strength and Tone Lines/Tubes/Other Access: Clean, Dry and Intact Peripheral IV Nutrition: Taking PO's Result Diagrams: 10/30/16 05:35 10/30/16 05:35 Additional Lab and Data: . Microbiology and Other Data: Microbiology 10/30/16 05:35 Aerobic Blood Culture - Preliminary Blood Venous No Growth Day 1 Anaerobic Blood Culture - Preliminary No Growth Day 1 10/29/16 22:30 Aerobic Blood Culture - Preliminary Blood Venous No Growth Day 1 Assess/Plan/Problems-Billing Assessment: This is a 31 yo female with history of IV drug abuse, bipolar disorder, anxiety , depression, PTSD, asthma and chronic lymphedema who presented with ulcerative lesions across her chest and LE edema. - Patient Problems (1) Skin ulceration Comment: Appears secondarily infected, but not septic Continue oral doxy Based on location and absence of mucosal involvement along with her history of IV drug abuse, ulcerations are likely due to intentional or unintentional picking Recommend keeping the open areas covered with a dry dressing (2) MICHELLE (acute kidney injury) Comment: With metabolic alkalosis secondary to over diuresis Stopped all diuretics Giving IV fluids Noted improvement, adequate urine output (3) Constipation Comment: - increase bowel regimen (4) Anxiety (5) Bipolar disorder Comment: Depakote (6) Chronic acquired lymphedema Comment: Diuretics are not an appropriate therapy Recommend weight loss and lower extremity compression (7) History of intravenous drug use in remission Comment: Continue Suboxone Current resident at [facility] Reportedly sober x 7 months (8) Depression (9) Morbid obesity Comment: BMI 45 (10) PTSD (post-traumatic stress disorder) Status and Disposition: Anticipate discharge tomorrow back to [facility] with oral antibiotics.
[2016-10-31] MEDS: cloNIDine TAB* 0.1 MG PO SCH (20:43)
[2016-10-31] MEDS: Polyethylene Glycol 3350* 17 GM PACKET PO SCH (20:44)
[2016-10-31] MEDS: Divalproex DR TAB(*) 500 MG PO SCH (20:44)
[2016-10-31] MEDS ORDERED: traMADol TAB* 50 MG PO PRN (21:41)
[2016-10-31] MEDS: Acetaminophen TAB* 325 MG PO PRN (23:42)
[2016-11-01] MEDS: Heparin VIAL(*) 5000 UNITS/ML VIAL (FIVE THOUSAND) SUBCUT SCH ×3 (05:17→20:21)
[2016-11-01 06:13] LABS: BUN/Creatinine Ratio 23.4 (8-20); Calcium 8.6 mg/dL (8.6-10.3); EGFR African American 62.1 (>60); EGFR Non-African American 48.3 (>60); Magnesium 2.3 mg/dL (1.9-2.7); Potassium 3.5 mmol/L (3.5-5.0)
[2016-11-01] MEDS ORDERED: Magnesium Hydroxide LIQ* 30 ML UDC PO ONE (07:42)
[2016-11-01] MEDS: Polyethylene Glycol 3350* 17 GM PACKET PO SCH ×2 (09:46→20:13)
[2016-11-01] MEDS: tiZANidine TAB* 2 MG PO PRN ×3 (09:47→23:55)
[2016-11-01] MEDS: Promethazine TAB* 25 MG PO PRN ×2 (09:50→16:37)
[2016-11-01] MEDS: hydrOXYzine HCL TAB* 25 MG PO SCH ×3 (09:50→20:12)
[2016-11-01] MEDS: DOXYcycline CAP(*) 100 MG PO SCH ×2 (09:50→20:11)
[2016-11-01] MEDS: Buprenorphine/Naloxone 8-2 MG SL TAB* 1 TAB SL SCH (09:51)
[2016-11-01] MEDS: Docusate CAP* 100 MG PO SCH ×2 (09:53→20:12)
[2016-11-01] MEDS ORDERED: Bisacodyl SUPP* 10 MG SUPP PR ONE (10:09)
[2016-11-01] MEDS: diPHENhydraMINE PO* 25 MG PO PRN ×2 (11:23→20:19)
[2016-11-01] MEDS: Ondansetron INJ* 2 MG/ML VIAL IV PRN (11:23)
--- NOTE | 2016-11-01 14:16 | RAD ---
Indication: Constipation. No bowel movement for 1.5 weeks. Lower abdominal pain. Cellulitis. Comparison: None. Technique: Supine and upright views of the abdomen. Report: Negative for free air beneath the diaphragm. Moderately large volume of stool present throughout the colon. Moderate rectal distention with stool. No dilated small bowel loops evident. No suspicious calcifications or mass effect. IMPRESSION: Moderately large volume of stool present throughout the colon. No evidence for bowel obstruction.
[2016-11-01] MEDS: Buprenorphine/Naloxone 8-2 MG SL TAB* 1 TAB PO SCH (16:39)
--- NOTE | 2016-11-01 17:26 | PN ---
Subjective Date of Service: 11/01/16 Interval History: patient reports no BM today. No abdominal pain, reports some pressure. no N/V/ D. Reports good appetite. Per nursing staff pt was declining her bowel regimen last night and today stating "Its not working"; I spoke to the pt at length again today and educated her why it is important to take the medications prescribed to help with her constipation. Objective Active Medications: Acetaminophen (Tylenol Tab*) 650 mg PO Q4H PRN PRN Reason: FEVER/PAIN Last Admin: 10/31/16 23:42 Dose: 650 mg Albuterol (Ventolin 2.5 Mg/3 Ml Neb.Mabel*) 2.5 mg INH Q2H PRN PRN Reason: SOB/WHEEZING Buprenorphine/Naloxone (Suboxone 8-2 Mg Sl Tab*) 1 tab.sl SL DAILY [facility] Last Admin: 11/01/16 09:51 Dose: 1 tab.sl Buprenorphine/Naloxone (Suboxone 8-2 Mg Sl Tab*) 0.5 tab.sl PO DAILY@1630 [facility] Last Admin: 11/01/16 16:39 Dose: 0.5 tab.sl Clonidine HCl (Catapres Tab*) 0.3 mg PO BEDTIME [facility] Last Admin: 10/31/16 20:43 Dose: 0.3 mg Diphenhydramine HCl (Benadryl Po*) 25 mg PO Q6H PRN PRN Reason: INSOMNIA Last Admin: 11/01/16 11:23 Dose: 25 mg Divalproex Sodium (Depakote Dr Tab(*)) 2,000 mg PO BEDTIME [facility] Last Admin: 10/31/16 20:44 Dose: 2,000 mg Docusate Sodium (Colace Cap*) 100 mg PO BID [facility] Last Admin: 11/01/16 09:53 Dose: Not Given Doxycycline Hyclate (Vibramycin Cap(*)) 100 mg PO BID [facility] Last Admin: 11/01/16 09:50 Dose: 100 mg Heparin Sodium (Porcine) (Heparin Vial(*)) 5,000 units SUBCUT Q8HR [facility] Last Admin: 11/01/16 05:17 Dose: Not Given Hydroxyzine HCl (Atarax Tab*) 25 mg PO TID [facility] Last Admin: 11/01/16 16:39 Dose: 25 mg Melatonin (Melatonin (Nf)) 3 mg PO BEDTIME PRN PRN Reason: INSOMNIA Ondansetron HCl (Zofran Inj*) 4 mg IV Q6H PRN PRN Reason: NAUSEA Last Admin: 11/01/16 11:23 Dose: 4 mg Polyethylene Glycol/Electrolytes (Miralax*) 17 gm PO 0800,2100 [facility] Last Admin: 11/01/16 09:46 Dose: 17 gm Promethazine HCl (Phenergan Tab*) 25 mg PO Q8H PRN PRN Reason: NAUSEA Last Admin: 11/01/16 16:37 Dose: 25 mg Senna (Senokot Tab*) 1 tab PO BEDTIME PRN PRN Reason: CONSTIPATION Tizanidine HCl (Zanaflex Tab*) 4 mg PO Q6H PRN PRN Reason: PAIN Last Admin: 11/01/16 16:39 Dose: 4 mg Tramadol HCl (Ultram*) 50 mg PO Q6H PRN PRN Reason: PAIN Vital Signs 10/31/16 10/31/16 10/31/16 17:51 18:57 19:51 Temperature Pulse Rate Respiratory 18 16 16 Rate Blood Pressure (mmHg) O2 Sat by Pulse Oximetry 10/31/16 10/31/16 10/31/16 20:00 20:57 21:51 Temperature Pulse Rate 81 Respiratory 16 16 16 Rate Blood Pressure (mmHg) O2 Sat by Pulse 98 Oximetry 10/31/16 11/01/16 11/01/16 22:57 00:04 08:53 Temperature 97.2 F 97.3 F Pulse Rate 79 78 Respiratory 16 16 12 Rate Blood Pressure 117/58 (mmHg) O2 Sat by Pulse 100 100 Oximetry 11/01/16 11/01/16 11/01/16 09:51 11:23 16:39 Temperature Pulse Rate Respiratory 14 14 14 Rate Blood Pressure (mmHg) O2 Sat by Pulse Oximetry 11/01/16 17:18 Temperature Pulse Rate 90 Respiratory 16 Rate Blood Pressure (mmHg) O2 Sat by Pulse 98 Oximetry Oxygen Devices in Use Now: None Appearance: obese female laying in bed in NAD. A+O x3 Eyes: No Scleral Icterus, PERRLA Ears/Nose/Mouth/Throat: NL Teeth, Lips, Gums, Mucous Membranes Moist Neck: NL Appearance and Movements; NL JVP Respiratory: Symmetrical Chest Expansion and Respiratory Effort, Clear to Auscultation Cardiovascular: NL Sounds; No Murmurs; No JVD, RRR, No Edema Abdominal: NL Sounds; No Tenderness; No Distention, - - obese Extremities: - - B/L LE edema Skin: - - chest has multiple small open areas, no drainage, no erythema, no foul odor. Neurological: Alert and Oriented x 3, NL Sensation, NL Gait, NL Muscle Strength and Tone Lines/Tubes/Other Access: Clean, Dry and Intact Peripheral IV Nutrition: Taking PO's Result Diagrams: 10/30/16 05:35 11/01/16 05:31 Additional Lab and Data: . Microbiology and Other Data: Microbiology 10/30/16 05:35 Aerobic Blood Culture - Preliminary Blood Venous No Growth Day 1 Anaerobic Blood Culture - Preliminary No Growth Day 1 10/29/16 22:30 Aerobic Blood Culture - Preliminary Blood Venous No Growth Day 1 Assess/Plan/Problems-Billing Assessment: This is a 31 yo female with history of IV drug abuse, bipolar disorder, anxiety , depression, PTSD, asthma and chronic lymphedema who presented with ulcerative lesions across her chest and LE edema. - Patient Problems (1) Skin ulceration Comment: Appears secondarily infected, but not septic MRSA positive - Continue oral doxy Based on location and absence of mucosal involvement along with her history of IV drug abuse, ulcerations are likely due to intentional or unintentional picking Recommend keeping the open areas covered with a dry dressing (2) MICHELLE (acute kidney injury) Comment: Improving With metabolic alkalosis secondary to over diuresis Stopped all diuretics (3) Constipation Comment: - abd xray today showing mod amount of stool. - continue bowel regimen; soao suds enema today - if pt continues to decline offered medications will ask for social work consult (4) Anxiety Comment: - continue Atarax, clonidine (5) Bipolar disorder Comment: Depakote (6) Chronic acquired lymphedema Comment: Diuretics are not an appropriate therapy Recommend weight loss and lower extremity compression (7) History of intravenous drug use in remission Comment: Continue Suboxone Current resident at [facility] Reportedly sober x 7 months (8) Depression (9) Morbid obesity Comment: BMI 45 (10) PTSD (post-traumatic stress disorder) Status and Disposition: Anticipate discharge tomorrow back to [facility] with oral antibiotics.
[2016-11-01] MEDS ORDERED: Magnesium CITRATE* 300 ML BTL PO ONE (17:58)
[2016-11-01] MEDS: cloNIDine TAB* 0.1 MG PO SCH (20:11)
[2016-11-01] MEDS: Divalproex DR TAB(*) 500 MG PO SCH (20:12)
[2016-11-01] MEDS: Acetaminophen TAB* 325 MG PO PRN (20:12)
[2016-11-02] MEDS: Heparin VIAL(*) 5000 UNITS/ML VIAL (FIVE THOUSAND) SUBCUT SCH ×2 (05:56→14:57)
[2016-11-02 07:51] VITALS: BP 117/51
[2016-11-02 08:19] LABS: Hematocrit 34 % (35-47); Hemoglobin 11.3 g/dl (12.0-16.0); Mean Corpuscular HGB Conc 33 g/dl (31-36); Mean Corpuscular Hemoglobin 31 pg (27-31); Mean Corpuscular Volume 92 fL (80-97); Red Blood Count 3.69 10^6/ul (4.0-5.4); Red Cell Distribution Width 15 % (10.5-15); White Blood Count 9.6 10^3/ul (3.5-10.8)
[2016-11-02 08:20] LABS: Add Diff/Slide Review? Slide Review Added; Comments Flag Yes
[2016-11-02 08:32] LABS: Anion Gap 6 mmol/L (2-11); CO2 Carbon Dioxide 28 mmol/L (22-32); Calcium 8.8 mg/dL (8.6-10.3); Chloride 101 mmol/L (101-111); Potassium 5.3 mmol/L (3.5-5.0); Sodium 135 mmol/L (133-145)
[2016-11-02 08:34] LABS: Glucose QNS mg/dL (70-100)
[2016-11-02 08:35] LABS: Blood Urea Nitrogen QNS mg/dL (6-24); Mean Platelet Volume 12 um3 (7.4-10.4)
[2016-11-02] MEDS: Docusate CAP* 100 MG PO SCH (09:44)
[2016-11-02] MEDS: tiZANidine TAB* 2 MG PO PRN (09:44)
[2016-11-02] MEDS: hydrOXYzine HCL TAB* 25 MG PO SCH ×2 (09:45→14:57)
[2016-11-02] MEDS: DOXYcycline CAP(*) 100 MG PO SCH (09:45)
[2016-11-02] MEDS: Promethazine TAB* 25 MG PO PRN (09:45)
[2016-11-02] MEDS: Buprenorphine/Naloxone 8-2 MG SL TAB* 1 TAB SL SCH (09:45)
[2016-11-02] MEDS: Polyethylene Glycol 3350* 17 GM PACKET PO SCH (09:46)
--- NOTE | 2016-11-02 10:11 | PN ---
Progress Note - Progress Note SOAP: Subjective: DOS: 11/02/16 CC: skin lesion HPI: 31 yo woman with substance abuse at rehab admitted with skin lesions on chest, says not picking at them. Redness around lesions are resolving. No fever, rash, or diarrhea. No BM for 1 week, no abd pain, had some BM overnight with enema. Objective: Vital Signs Temp 36.6 C 11/02/16 07:50 Pulse 80 11/02/16 09:04 Resp 18 11/02/16 09:45 BP 117/51 11/02/16 07:50 Pulse Ox 99 11/02/16 09:04 Intake & Output 11/01/16 11/02/16 11/02/16 18:59 06:59 18:59 Intake Total 1180 800 Output Total 0 1600 Balance 1180 -800 Intake: IV Fluids 10 NS (0.9%) 10 Oral 1170 800 Output: Urine 0 1600 Other: Estimated Void Medium # Bowel Movements 0 # Voids 2 Gen:awake, no distress HEENT:PERRL, MMM Neck:Supple Heart:RRR no murmur Lungs:CTA BL Abd:+BS NTND soft Skin: no rash; on her bilateral breasts there are two <1 cm shallow erosions with no surrounding erythema Laboratory Results - last 24 hr 11/02/16 11/02/16 07:40 07:40 WBC 9.6 RBC 3.69 L Hgb 11.3 L Hct 34 L MCV 92 MCH 31 MCHC 33 RDW 15 Plt Count 157 MPV 12 H Neut % (Auto) 41.7 Lymph % (Auto) 43.6 [place] % (Auto) 10.1 H Eos % (Auto) 4.4 Baso % (Auto) 0.2 Absolute Neuts (auto) 4.0 Absolute Lymphs (auto) 4.2 Absolute Monos (auto) 1.0 H Absolute Eos (auto) 0.4 Absolute Basos (auto) 0 Absolute Nucleated RBC 0.05 Nucleated RBC % 0.5 Sodium 135 Potassium 5.3 H D Chloride 101 Carbon Dioxide 28 Anion Gap 6 BUN QNS Creatinine QNS Est GFR ( Amer) Not Reportable Est GFR (Non-Af Amer) Not Reportable BUN/Creatinine Ratio Not Reportable Glucose QNS Calcium 8.8 Microbiology 10/30/16 05:35 Blood Venous Aerobic Blood Culture - Preliminary No Growth Day 3 10/30/16 05:35 Blood Venous Anaerobic Blood Culture - Preliminary No Growth Day 3 10/30/16 05:35 Blood Venous Blood Culture - Final 10/29/16 22:30 Blood Venous Aerobic Blood Culture - Preliminary No Growth Day 3 10/29/16 22:30 Blood Venous Anaerobic Blood Culture - Final 10/29/16 18:25 Chest Gram Stain - Final 10/29/16 18:25 Chest Wound Culture - Final MRSA Normal Padmini Assessment: 1. MRSA infection of ulcerations 2. ulceration due to excoriation 3. IVDU in brief remission 4. colonoscopy 5. chronic suboxone therapy Plan: 1. continue doxycycline 100 mg po bid x5 more days 2. bowel regimen per hostpitalists
--- NOTE | 2016-11-02 10:19 | DCNOTE ---
Subjective Date of Service: 11/02/16 Interval History: Patient had small stool overnight, feels good today physically - reports she is very emotional due to that her sisters didn't visit her while here. No fevers or chills. Reports her wounds are healing, no drainage Discussed discharge instructions, she states understanding. Objective Active Medications: Acetaminophen (Tylenol Tab*) 650 mg PO Q4H PRN PRN Reason: FEVER/PAIN Last Admin: 11/01/16 20:12 Dose: 650 mg Albuterol (Ventolin 2.5 Mg/3 Ml Neb.Mabel*) 2.5 mg INH Q2H PRN PRN Reason: SOB/WHEEZING Buprenorphine/Naloxone (Suboxone 8-2 Mg Sl Tab*) 1 tab.sl SL DAILY [facility] Last Admin: 11/02/16 09:45 Dose: 1 tab.sl Buprenorphine/Naloxone (Suboxone 8-2 Mg Sl Tab*) 0.5 tab.sl PO DAILY@1630 [facility] Last Admin: 11/01/16 16:39 Dose: 0.5 tab.sl Clonidine HCl (Catapres Tab*) 0.3 mg PO BEDTIME [facility] Last Admin: 11/01/16 20:11 Dose: 0.3 mg Diphenhydramine HCl (Benadryl Po*) 25 mg PO Q6H PRN PRN Reason: INSOMNIA Last Admin: 11/01/16 20:19 Dose: 25 mg Divalproex Sodium (Depakote Dr Tab(*)) 2,000 mg PO BEDTIME [facility] Last Admin: 11/01/16 20:12 Dose: 2,000 mg Docusate Sodium (Colace Cap*) 100 mg PO BID [facility] Last Admin: 11/02/16 09:44 Dose: 100 mg Doxycycline Hyclate (Vibramycin Cap(*)) 100 mg PO BID [facility] Last Admin: 11/02/16 09:45 Dose: 100 mg Heparin Sodium (Porcine) (Heparin Vial(*)) 5,000 units SUBCUT Q8HR [facility] Last Admin: 11/02/16 05:56 Dose: Not Given Hydroxyzine HCl (Atarax Tab*) 25 mg PO TID [facility] Last Admin: 11/02/16 09:45 Dose: 25 mg Melatonin (Melatonin (Nf)) 3 mg PO BEDTIME PRN PRN Reason: INSOMNIA Ondansetron HCl (Zofran Inj*) 4 mg IV Q6H PRN PRN Reason: NAUSEA Last Admin: 11/01/16 11:23 Dose: 4 mg Polyethylene Glycol/Electrolytes (Miralax*) 17 gm PO 0800,2100 [facility] Last Admin: 11/02/16 09:46 Dose: 17 gm Promethazine HCl (Phenergan Tab*) 25 mg PO Q8H PRN PRN Reason: NAUSEA Last Admin: 11/02/16 09:45 Dose: 25 mg Senna (Senokot Tab*) 1 tab PO BEDTIME PRN PRN Reason: CONSTIPATION Tizanidine HCl (Zanaflex Tab*) 4 mg PO Q6H PRN PRN Reason: PAIN Last Admin: 11/02/16 09:44 Dose: 4 mg Tramadol HCl (Ultram*) 50 mg PO Q6H PRN PRN Reason: PAIN Vital Signs 11/01/16 11/01/16 11/01/16 11:23 11:51 13:23 Temperature Pulse Rate Respiratory 14 16 16 Rate Blood Pressure (mmHg) O2 Sat by Pulse Oximetry 11/01/16 11/01/16 11/01/16 16:39 17:18 18:39 Temperature Pulse Rate 90 Respiratory 14 16 16 Rate Blood Pressure (mmHg) O2 Sat by Pulse 98 Oximetry 11/01/16 11/01/16 11/01/16 20:00 20:19 22:19 Temperature Pulse Rate Respiratory 16 16 16 Rate Blood Pressure (mmHg) O2 Sat by Pulse Oximetry 11/01/16 11/02/16 11/02/16 23:29 02:27 07:50 Temperature 97.8 F 97.9 F Pulse Rate 79 80 77 Respiratory 16 20 18 Rate Blood Pressure 117/61 117/51 (mmHg) O2 Sat by Pulse 100 100 99 Oximetry 11/02/16 11/02/16 09:04 09:45 Temperature Pulse Rate 80 Respiratory 14 18 Rate Blood Pressure (mmHg) O2 Sat by Pulse 99 Oximetry Oxygen Devices in Use Now: None Appearance: morbidly obese female sitting up her bed in NAD. A+O x3 Eyes: No Scleral Icterus, PERRLA Ears/Nose/Mouth/Throat: NL Teeth, Lips, Gums, Mucous Membranes Moist Neck: NL Appearance and Movements; NL JVP Respiratory: Symmetrical Chest Expansion and Respiratory Effort, Clear to Auscultation Cardiovascular: NL Sounds; No Murmurs; No JVD, RRR, - - LE b/l edema 2+ chronic lymphedema Skin: - - multiple small wounds on chest, healing - no drainage or srrounding erythema Neurological: Alert and Oriented x 3, NL Sensation, NL Gait, NL Muscle Strength and Tone Lines/Tubes/Other Access: Clean, Dry and Intact Peripheral IV Nutrition: Taking PO's Result Diagrams: 11/02/16 07:40 11/02/16 07:40 Additional Lab and Data: . Microbiology and Other Data: Microbiology 10/30/16 05:35 Aerobic Blood Culture - Preliminary Blood Venous No Growth Day 1 Anaerobic Blood Culture - Preliminary No Growth Day 1 10/29/16 22:30 Aerobic Blood Culture - Preliminary Blood Venous No Growth Day 1 Assess/Plan/Problems-Billing Assessment: This is a 31 yo female with history of IV drug abuse, bipolar disorder, anxiety , depression, PTSD, asthma and chronic lymphedema who presented with ulcerative lesions across her chest and LE edema. - Patient Problems (1) Skin ulceration Comment: Appears secondarily infected, but not septic MRSA positive - Continue oral doxy - continue for 5 days per ID Based on location and absence of mucosal involvement along with her history of IV drug abuse, ulcerations are likely due to intentional or unintentional picking Recommend keeping the open areas covered with a dry dressing (2) MICHELLE (acute kidney injury) Comment: Improving With metabolic alkalosis secondary to over diuresis Stopped all diuretics check BMP in 3-5 days (3) Constipation Comment: - small BM overnight - abd xray 2/5 showing mod amount of stool, no obstruction - continue bowel regimen (4) Hyperkalemia Comment: - give one dose kayexalate - check BMP at [facility] in 2-3 days (5) Anxiety Comment: - continue Atarax, clonidine (6) Bipolar disorder Comment: Depakote (7) Chronic acquired lymphedema Comment: Diuretics are not an appropriate therapy Recommend weight loss and lower extremity compression (8) History of intravenous drug use in remission Comment: Continue Suboxone Current resident at [facility] Reportedly sober x 7 months (9) Depression (10) Morbid obesity Comment: BMI 45 (11) PTSD (post-traumatic stress disorder) Status and Disposition: discharge today back to [facility] with oral antibiotics and bowel regimen
[2016-11-02] MEDS ORDERED: Sodium Polystyrene ORAL.SOL* 15 GM/60 ML BTL PO ONE (10:30)
[2016-11-02] MEDS: Buprenorphine/Naloxone 8-2 MG SL TAB* 1 TAB PO SCH (14:57)
--- NOTE | 2016-11-02 20:42 | DS ---
DISCHARGE SUMMARY: DATE OF ADMISSION: 10/29/16 DATE OF DISCHARGE: 11/02/16 ATTENDING PHYSICIAN: Dr. Hardwick *(report dictated by Gabbie Mabry NP). PRIMARY CARE PROVIDERS: 1. [facility]. 2. Shoshana Mcdonald MD. PRIMARY DIAGNOSES: 1. Cellulitis with MRSA infection of ulcerations. 2. Acute renal failure secondary to overdiuresis and dehydration. 3. Hypokalemia and hyperkalemia. 4. Mild hyponatremia. 5. Constipation. SECONDARY DIAGNOSES: 1. History of IV drug use, currently a resident at [facility]. 2. Chronic lymphedema. 3. Asthma. 4. Bipolar. 5. Anxiety. 6. Depression. 7. Posttraumatic stress disorder. 8. History of IV drug use, on chronic Suboxone therapy. DISCHARGE MEDICATIONS: 1. Acetaminophen 325 mg p.o. q.6 hours p.r.n. 2. Terbinafine HCl 250 mg p.o. q.a.m. 3. Benadryl HCl 25 mg p.o. q.6 hours p.r.n. 4. Multivitamins with minerals 1 tab p.o. daily. 5. Melatonin 5 mg p.o. at bedtime p.r.n. 6. Promethazine HCl 25 mg p.o. q.8 hours p.r.n. 7. Zanaflex 4 mg p.o. q.6 hours p.r.n. 8. Calcium carbonate (Tums) 500 mg p.o. q.6 hours p.r.n., max daily dose 8. 9. Vistaril 25 mg p.o. t.i.d. 10. Clonidine 0.3 mg p.o. at bedtime. 11. Depakote 2000 mg p.o. at bedtime. 12. Suboxone 12/3 mg 1 sublingual daily. 13. MiraLAX 17 g p.o. daily. 14. Doxycycline 100 mg p.o. b.i.d. x5 days. MEDICATIONS DISCONTINUED: 1. Metolazone 5 mg p.o. daily. 2. Lasix 100 mg p.o. daily. HISTORY OF PRESENT ILLNESS AND HOSPITAL COURSE: Please see history and physical by Agus Simpson NP, for full admission details, but in summary, this is a 31-year- old female who is currently a resident at [facility] inpatient rehab from IV heroin use, reporting she has been sober for 7 months, who presents to the emergency department on 10/29/16 with nausea, fever, rash, admitted to the hospitalist service for cellulitis and IV antibiotics. On admission, she was also noted to have acute renal failure with a creatinine of 1.67, this was thought to be secondary to the high-dose diuretics that she was placed on for chronic lymphedema. In regards to her cellulitis, the patient was initially started on vancomycin and then was switched to doxycycline. She was seen in consultation by Dr. Martin, Infectious Disease, who thinks most likely due to secondary to picking. The patient's wounds did grow MRSA. Her wounds which are more like ulcerations had much improvement and then the erythema appeared to be healing well. The patient's hospitalization was complicated by constipation with the patient reporting no bowel movement in 7 to 10 days. She was started on a bowel regimen and did have a small bowel movement overnight. She underwent abdomen x-ray yesterday, 11/01/16, which showed moderate amount of stool with no obstruction. Overnight, she did have a bowel movement. Initially, she was noted to be hyponatremic, which was thought to be secondary to dehydration, which resolved with IV fluids. As well, she was hypokalemic and was given potassium replacement. Today on labs, she is mildly hyperkalemic with potassium of 5.3. She was given a dose of Kayexalate and should have her labs followed up in 2 days. As well, her kidney function should be followed up in 2 days. Her creatinine has been trending down and is now 1.26. The patient has done well throughout her hospitalization. She has remained hemodynamically stable and afebrile. Please note it is thought that the patient's acute renal failure was secondary to the dual diuretics she was placed on for her chronic lymphedema. It is not a recommended therapy for chronic lymphedema. Encouraged the patient to wear NORMA stockings and wrap and elevate her legs frequently. DISCHARGE PLAN: 1. Follow up with Dr. Mcdonald this week. 2. Please check BMP for kidney function and potassium in 2 days. 3. Continue doxycycline for 5 more days. 4. Daily dressing changes over ulcerations and encourage daily showers with soap and water. 5. Continue strict bowel regimen. 6. Consider colonoscopy as an outpatient. TIME SPENT: Approximately 60 minutes was spent on this discharge. GABBIE MABRY NP CC: [facility]* [id number]/CPS #: [id number] YOLANDA
== END 2016-11-02 15:26 | disposition home or self-care (01) | DRG 380 ==
LOC: ED 17:45 → MED 21:26
PROVIDERS: ADMIT Internal Medicine; ATTEND Internal Medicine
DX: L98.491 Non-pressure chronic ulcer of skin of other sites limited to breakdown of skin (principal); N17.9 Acute kidney failure, unspecified; E87.3 Alkalosis; E87.1 Hypo-osmolality and hyponatremia; F33.8 Other recurrent depressive disorders; F31.81 Bipolar II disorder; L00 Staphylococcal scalded skin syndrome; B95.62 Methicillin resistant Staphylococcus aureus infection as the cause of diseases classified elsewhere; L49.0 Exfoliation due to erythematous condition involving less than 10 percent of body surface; F42.4 Excoriation (skin-picking) disorder; E87.6 Hypokalemia; E87.5 Hyperkalemia; E86.0 Dehydration; K59.00 Constipation, unspecified; F43.10 Post-traumatic stress disorder, unspecified; F41.9 Anxiety disorder, unspecified; J45.909 Unspecified asthma, uncomplicated; F11.21 Opioid dependence, in remission; Z98.84 Bariatric surgery status; Z79.1 Long term (current) use of non-steroidal anti-inflammatories (NSAID); Z79.899 Other long term (current) drug therapy; Z88.1 Allergy status to other antibiotic agents; Z88.8 Allergy status to other drugs, medicaments and biological substances; Z83.3 Family history of diabetes mellitus; Z80.9 Family history of malignant neoplasm, unspecified; Z87.891 Personal history of nicotine dependence
CPT/HCPCS: 36415; 74020; 80048; 80053; 80164; 80178; 80202; 81003; 82570; 83605; 83735; 84145; 84300; 85025; 85652; 86140; 87040; 87070; 87077; 87186; 87205; A9270-GY; J1644; J2405; J3370; J3480